=== PATIENT | male | born 1945 | race Caucasian/White ===

== ENCOUNTER → 2016-08-04 | Outpatient (CLI) | payer MEDICARE, BC ==
[~2016-08-04] MED LIST: ASPIRIN PO; BAYER BACK & B1 EACH PO; CLARITIN10 M2 PO; FLOMAX0.4 M1 PO; LORTAB 7.5-3251 EACH PO; SIMVASTATIN40 MG PO; ZOCOR PO
--- NOTE | ~2016-08-04 | CT2 ---
[facility] A Service of [facility] RADIOLOGY TEXT RESULTS PATIENT: JOSE JORDAN LOCATION: [facility] : 47 UNIT #: [id number] AGE: [address]: Derrick Albarado MD SEX: M ORDER DR: [id number] [facility] [address]. [place], [place] [address] [id number] O MR#: [id number] Acc #: [id number] NAME: JOSE JORDAN. : 1945 SEX: M STUDY DATE/TIME: 08/04/2016 9:15 UNIT: [facility] ROOM: STUDY DESCRIPTION: CT Abd and Pelv W Cont Attending Physician: Derrick Albarado M.D. Referring Physician: Derrick Albarado M.D. Ordering Physician: Derrick Albarado M.D. Primary Care Physician: Derrick Albarado M.D. MEDICAL IMAGING REPORT This report is preliminary unless electronic signature is present EXAM Abdomen and pelvis CT with contrast HISTORY Colon cancer with abnormal liver enzymes. Evaluate for abdomen and pelvis malignancy suspected. TECHNIQUE Axial images were obtained with oral and intravenous contrast. 100 mL of Isovue was used. This CT exam was performed with one or more of the following radiation dose reduction techniques: automatic exposure control, adjustment of mA and/or kV according to patient size, and iterative reconstruction. COMPARISON The study is correlated with a PET/CT scan from 05/19/2016 and an abdomen and pelvis CT from 03/03/2016. FINDINGS There is a large paraesophageal hiatal hernia with most of the stomach in the chest. Postoperative changes are seen in the colon with right hemicolectomy noted. The liver, spleen, kidneys, adrenals and pancreas are unremarkable. In particular, there is no evidence of hepatic metastasis. There is no evidence of retroperitoneal adenopathy or ascites and no distended bowel loops are seen. In the left lower quadrant, there is a focal area of mucosal thickening in the lower descending colon accompanied by some streaking of adjacent pericolonic fat. This could reflect a focal area of diverticulitis or colitis. The possibility of a second colon malignancy cannot be completely excluded although this is a new finding when compared to fairly recent previous imaging studies. In particular, this area showed no evidence of abnormality on the PET/CT scan of 05/19/2016. Therefore it is felt to be a very low likelihood of STS. [facility] A Service of [facility] RADIOLOGY TEXT RESULTS PATIENT: JO[facility] JORDAN [facility] UNIT #: [id number] AGE: [address]: Derrick Albarado MD SEX: M ORDER DR: malignancy. No free fluid is seen in the pelvis. IMPRESSION 1. Focal area of mucosal thickening with stranding of fat adjacent to the colon in the left lower quadrant. I favor diverticulitis is the most likely etiology. No evidence of an abscess. 2. No evidence of metastatic disease in the liver. 3. Status post right colectomy. 4. No evidence of adenopathy in the abdomen or pelvis. 5. Large hiatal hernia unchanged from previous studies. Dictated by... Dallin Marie M.D. THIS IS AN ELECTRONICALLY VERIFIED REPORT Dallin Marie M.D. at 08/04/2016 11:23 AM REBECCA/erik TD: 08/04/2016 10:57 JOB #: [id number] MEDICAL IMAGING REPORT Page 1 of 1 COPY
[2016-08-04 08:45] LABS: POC - CREATININE 1.06 mg/dL (0.64-1.27); POC - GFR >60.0 mL/min (>60)
== END | disposition home or self-care (01) ==
LOC: CCAT 07:48
PROVIDERS: Internal Medicine
DX: R74.8 Abnormal levels of other serum enzymes (principal); K44.9 Diaphragmatic hernia without obstruction or gangrene; Z85.038 Personal history of other malignant neoplasm of large intestine; Z90.49 Acquired absence of other specified parts of digestive tract
CPT/HCPCS: 74177; 82565; Q9967

== ENCOUNTER → 2016-11-19 | Outpatient (CLI) | payer MEDICARE, BC ==
--- NOTE | ~2016-11-19 | CT2 ---
[facility] A Service of [facility] RADIOLOGY TEXT RESULTS PATIENT: JOSE JORDAN LOCATION: [facility] : 47 UNIT #: [id number] AGE: [address]: Amos Cuevas MD SEX: M ORDER DR: [id number] [facility] [address] [place], [place] [address] [id number] O MR#: [id number] Acc #: [id number] NAME: JOSE JORDAN : 1945 SEX: M STUDY DATE/TIME: 11/19/2016 10:20 UNIT: [facility] ROOM: STUDY DESCRIPTION: CT Abd and Pelv W Cont Attending Physician: Amos Cuevas M.D. Ordering Physician: Amos Cuevas M.D. Primary Care Physician: Derrick Albarado M.D. MEDICAL IMAGING REPORT This report is preliminary unless electronic signature is present EXAM CT abdomen and pelvis with contrast INDICATIONS Follow up colon cancer. Observation for metastatic disease. TECHNIQUE CT of the abdomen and pelvis was performed following the administration of IV contrast. Coronal and sagittal reformatted images were obtained. This CT exam was performed with one or more of the following radiation dose reduction techniques: automatic exposure control, adjustment of mA and/or kV according to patient size, and iterative reconstruction. COMPARISON 08/04/2016. FINDINGS Evaluation of lung bases shows a stable massive hiatal hernia. Tiny low-density lesion adjacent to the gallbladder in the right lobe the liver is stable and is probably a cyst but should be followed. Gallbladder is unremarkable. The spleen is unremarkable. The kidneys, adrenal glands are unremarkable. Majority of the pancreas is contained within the hiatal hernia. No evidence of lymphadenopathy. No ascites. PELVIS: Fat-containing inguinal hernia on the left. Prostatomegaly. Diverticulosis. Postoperative changes from partial colectomy. A large portion of the colon is contained within the hiatal hernia. No lymphadenopathy or free fluid. Bone windows are unremarkable. IMPRESSION [facility] A Service of [facility] RADIOLOGY TEXT RESULTS PATIENT: JOSE JORDAN LOCATION: [facility] : 47 UNIT #: [id number] AGE: [address]: Amos Cuevas MD SEX: M ORDER DR: No evidence for metastatic disease. Dictated by... James Camilo M.D. THIS IS AN ELECTRONICALLY VERIFIED REPORT James Camilo M.D. at 11/22/2016 4:58 PM ARS/pcl TD: 11/21/2016 14:24 JOB #: [id number] MEDICAL IMAGING REPORT Page 1 of 1 COPY
[2016-11-19 11:26] LABS: POC - CREATININE 0.82 mg/dL (0.64-1.27); POC - GFR >60.0 mL/min (>60)
== END | disposition home or self-care (01) ==
LOC: CCAT 09:10
PROVIDERS: Internal Medicine Hematology
DX: C18.2 Malignant neoplasm of ascending colon (principal); D70.1 Agranulocytosis secondary to cancer chemotherapy; E86.0 Dehydration; E86.1 Hypovolemia
CPT/HCPCS: 74177; 82565; Q9967